=== PATIENT | male | born 2000 ===

== ENCOUNTER 2023-02-11 13:31 | Emergency (ER) | payer SELFPAY ==
[~2023-02-11] VITALS: Ht 170.2 cm; Wt 65.7 kg
[2023-02-11 14:24] LABS: BASO% 0.6 % (0-3); HEMATOCRIT 44.5 % (39.0-50.0); HEMOGLOBIN 15.1 g/dl (14.0-18.0); IMMATURE GRANULOCYTES 0.3 % (0.0-5.0); LYMPH% 34.6 % (15-41); MEAN CELL VOLUME 88.3 fL CALC (80.0-100.0); MEAN CORPUSCULAR HGB CONC 33.9 g/dL CAL (32.0-36.0); MONO% 8.4 % (2-13); NEUT# 4.34 thou/uL (1.82-7.42); NEUT% 55.1 % (42-76); RED BLOOD COUNT 5.04 mill/uL (4.70-6.10); RED CELL DISTRI WIDTH 12.6 % (11.5-15.5)
[2023-02-11 14:41] LABS: ALBUMIN 4.6 g/dL (3.2-5.0); ALKALINE PHOSPHATASE 56 u/l (38-126); ANION GAP 15 (6-22 (CALC)); BILIRUBIN, TOTAL 0.5 mg/dL (0.2-1.3); BUN 11 mg/dL (9-20); BUN/CREATININE RATIO 10 (12-20 (CALC)); CARBON DIOXIDE 27 mmol/l (22-30); CHLORIDE 104 mmol/l (95-108); CREATININE 1.1 mg/dL (0.7-1.3); GFR FOR AFR.AMER. > 60 ML/MIN (>=60 (CALC)); GFR OTHER RACES > 60 ML/MIN (>=60 (CALC)); MAGNESIUM 2.1 mg/dL (1.6-2.3); POTASSIUM 3.7 mmol/l (3.5-5.1); SGOT/AST 31 u/l (17-59); SODIUM 141 mmol/l (137-146); TOTAL PROTEIN 7.5 g/dL (6.3-8.2)
[2023-02-11 14:47] LABS: ETHYL ALCOHOL 0 mg/dl (0-30)
[2023-02-11 17:27] LABS: URINE BILIRUBIN - DIPSTICK Negative (NEGATIVE); URINE BLOOD DIPSTICK Negative (NEGATIVE); URINE GLUCOSE - DIPSTICK Negative (NEGATIVE); URINE KETONE Negative (NEGATIVE); URINE LEUK ESTERASE Negative (NEGATIVE); URINE NITRITE - DIPSTICK Negative (Negative); URINE PROTEIN - DIPSTICK Negative (NEG-TRACE); URINE UROBILINOGEN - DIPSTICK 0.2 E.U./dL (0.2)
[2023-02-11 17:31] LABS: URINE COLOR Yellow
[2023-02-11 20:09] VITALS: BP 123/81
== END 2023-02-11 23:14 | DRG 885 ==
LOC: ED 13:31
PROVIDERS: Emergency Medicine
DX: F23 Brief psychotic disorder (principal); R45.850 Homicidal ideations; Z20.822 Contact with and (suspected) exposure to COVID-19

== ENCOUNTER 2023-03-11 15:28 | Emergency (ER) | payer SELFPAY ==
[~2023-03-11] VITALS: Ht 170.2 cm; Wt 63.0 kg
[2023-03-11] MEDS ORDERED: HYDROXYZ HCL25 MG PO (16:09)
[2023-03-11] MEDS ORDERED: TRAZODONE100 MG PO ×2 (16:10→16:14)
[2023-03-11 16:11] VITALS: BP 126/83
[2023-03-11] MEDS ORDERED: HYDROXYZ HCL50 MG PO (16:14)
== END 2023-03-11 16:25 | disposition home or self-care (01) | DRG 951 ==
LOC: ED 15:28
DX: Z76.0 Encounter for issue of repeat prescription (principal); F99 Mental disorder, not otherwise specified